=== PATIENT | female | born 1950 | race Caucasian/White ===

== ENCOUNTER 2017-10-21 07:34 | Outpatient (CLI) | payer OTHER ==
[~2017-10-21 07:34] MED LIST: ALENDRONATE SOD35 MG PO; ALTOPREV20 MG PO; CLONAZEPAM2 MG PO; NABUMETONE500 MG PO; PERCOCET 5-3251 EACH PO; VITAMIN D400 UNI2 PO
== END 2017-10-21 07:38 | disposition home or self-care (01) ==
LOC: SONOGRAMA 07:34
DX: M25.511 Pain in right shoulder (principal)

== ENCOUNTER 2021-08-23 08:00 | Inpatient (IN) | payer OTHER ==
[~2021-08-23] VITALS: Ht 152.4 cm; Wt 86.2 kg
[2021-08-23] MEDS ORDERED: HYDRODIURIL12.5 MG PO (11:42)
[2021-08-23] MEDS ORDERED: CALCIUM500 M2 PO (11:42)
[2021-08-23] MEDS ORDERED: ADULT LOW DOSE81 M1 PO (11:42)
[2021-08-23] MEDS ORDERED: VASOTEC5 MG PO (11:43)
[2021-08-29] MEDS ORDERED: DUI500 PO (15:23)
[2021-08-29] MEDS ORDERED: ELIQUIS2.5 MG PO (15:23)
[2021-08-29] MEDS ORDERED: PERCOCET 5-3251 EACH PO (15:23)
== END 2021-08-29 17:38 | disposition home or self-care (01) | DRG 470 ==
LOC: O/R 08-27 05:55 → SURG 08-27 05:55 → SURH 08-27 08:00 → SURG 08-27 14:59
PROVIDERS: ADMIT Orthopaedic Surgery; ATTEND Orthopaedic Surgery
PROC: 0SRC0J9 Replacement of Right Knee Joint with Synthetic Substitute, Cemented, Open Approach (ICD-10-PCS; principal; 2021-08-27 13:45)
DX: M17.11 Unilateral primary osteoarthritis, right knee (principal); D62 Acute posthemorrhagic anemia; E66.9 Obesity, unspecified; M22.11 Recurrent subluxation of patella, right knee; I10 Essential (primary) hypertension; Z20.822 Contact with and (suspected) exposure to COVID-19

== ENCOUNTER 2023-10-20 08:30 | Inpatient (IN) | payer OTHER ==
[~2023-10-20] VITALS: Ht 149.9 cm; Wt 73.5 kg
[~2023-10-20 08:30] MED LIST changes: +ADULT LOW DOSE81 M1 PO; +CALCIUM500 M2 PO; +DUI500 PO; +ELIQUIS2.5 MG PO; +HYDRODIURIL12.5 MG PO; +VASOTEC5 MG PO
[2023-10-20 10:25] LABS: URINE APPEARANCE Clear; URINE BILIRRUBIN Negative (NEGATIVE); URINE BLOOD Negative; URINE COLOR Yellow; URINE GLUCOSE Negative (NEGATIVE); URINE LEUKOCYTE Trace; URINE NITRATE Negative; URINE PROTEIN Negative (NEGATIVE); URINE UROBILINOGEN 0.2 E.U./dl
[2023-10-20 10:27] LABS: URINE BACTERIA 80.6 uL (0.0-1933); URINE EPITHELIAL CELLS 8.6 uL (0.0-38.8); URINE WBC 13.1 uL (0.0-23.2)
[2023-10-20 10:30] LABS: URINE RBC 1.8 uL (0.0-20.8)
[2023-10-20 10:34] LABS: HEMATOCRIT 41.3 % (36.0-45.00); HEMOGLOBIN 13.9 g/dL (12.0-15.00); MEAN CORPUSCULAR HEMOGLOBIN 29.1 pg (27.00-32.0); MEAN CORPUSCULAR HGB CONC 33.8 g/dl (32.0-36.0); PLATELET COUNT 244 K/uL (150-450); RED CELL DISTRIBUTION WIDTH 14.6 % (11.5-14.5)
[2023-10-20 11:04] LABS: ALBUMIN 3.6 gm/dL (3.4-5.0); BILIRUBIN TOTAL 0.94 mg/dL (0.3-1.2); CALCIUM 9.4 mg/dL (8.5-10.1); CREATININE SERUM 0.51 mg/dL (0.55-1.02); GFR 118.87; GLOBULINA 3.6 G/DL (2.4-3.5); POTASSIUM 3.96 mEq/L (3.5-5.1); TOTAL PROTEIN 7.2 gm/dL (6.4-8.2)
[2023-10-20 11:12] LABS: INR 1.01; PARTIAL THROMBOPLASTIN TIME 31.3 SECONDS (22.0-34.0); PROTHROMBIN TIME 10.6 SECONDS (9.0-11.5)
[2023-10-27] MEDS ORDERED: KETOROLAC TROMETHAMINE 60 MG VIAL IM ONE ×2 (09:09→10:15)
[2023-10-27] MEDS ORDERED: CEFAZOLIN SODIUM 1,000 MG VIAL ONE ×2 (09:09→15:56)
[2023-10-27] MEDS ORDERED: TRANEXAMIC ACID 100MG/1ML (1000MG) AMPUL IV ONE ×3 (09:10→10:15)
[2023-10-27] MEDS ORDERED: BUPIVACAINE HCL 30 ML VIAL IJ ONE (10:15)
[2023-10-27] MEDS ORDERED: LIDOCAINE HCL/EPINEPHRINE 10MG/ML 1% 50ML IJ ONE (10:15)
[2023-10-27] MEDS ORDERED: CEFAZOLIN SODIUM 1,000 MG VIAL IV ONE (10:15)
[2023-10-27] MEDS ORDERED: MORPHINE SULFATE 4 MG/ML VIAL IV ONE (10:15)
[2023-10-27] MEDS ORDERED: MORPHINE SULFATE 4 MG/ML CARTRIDGE IV PRN (10:45)
[2023-10-27] MEDS ORDERED: ONDANSETRON HCL 2 MG/ML VIAL IV PRN (10:45)
[2023-10-27] MEDS ORDERED: OxyCODONE HCL 5 MG TABLET (ROXICODONE) PO PRN (10:45)
[2023-10-27] MEDS ORDERED: SODIUM CHLORIDE 0.45 % 1,000 ML IV SCH (10:45)
[2023-10-27] MEDS ORDERED: ACETAMINOPHEN 500 MG GEL..CAP PO SCH (12:00)
[2023-10-27] MEDS ORDERED: ONDANSETRON HCL 2 MG/ML VIAL ONE (12:53)
[2023-10-27] MEDS ORDERED: GABAPENTIN 300 MG CAPSULE PO ONE (15:58)
[2023-10-27] MEDS ORDERED: ENALAPRILAT DIHYDRATE 1.25 MG/ML VIAL IV PRN (16:15)
[2023-10-27] MEDS ORDERED: GABAPENTIN 300 MG CAPSULE PO SCH (17:00)
[2023-10-27] MEDS ORDERED: CEFAZOLIN SODIUM 1,000 MG VIAL IV SCH (17:00)
[2023-10-28 05:20] LABS: HEMATOCRIT 36.4 % (36.0-45.00); HEMOGLOBIN 12.1 g/dL (12.0-15.00); MEAN CELL VOLUME 86.1 fL (80.00-100.00); MEAN CORPUSCULAR HEMOGLOBIN 28.6 pg (27.00-32.0); MEAN CORPUSCULAR HGB CONC 33.2 g/dl (32.0-36.0); PLATELET COUNT 185 K/uL (150-450); RED BLOOD COUNT 4.23 M/uL (4.00-6.00); RED CELL DISTRIBUTION WIDTH 14.2 % (11.5-14.5)
[2023-10-28] MEDS ORDERED: ELIQUIS2.5 MG PO (08:15)
[2023-10-28] MEDS ORDERED: PERCOCET 5-3251 EACH PO (08:15)
[2023-10-28] MEDS ORDERED: DUI500 PO (08:15)
[2023-10-28] MEDS ORDERED: HYDROCHLOROTHIAZIDE 12.5 MG CAPSULE PO SCH (09:00)
[2023-10-28] MEDS ORDERED: APIXABAN 2.5 MG TABLET PO SCH (09:00)
[2023-10-28] MEDS ORDERED: SENNOSIDES 1 TAB TABLET PO SCH (09:00)
[2023-10-28] MEDS ORDERED: ENALAPRIL MALEATE 20 MG TABLET PO SCH (09:00)
[2023-10-28] MEDS ORDERED: SOD FERRIC GLUC COMPLX/SUCROSE 62.5 MG/5 ML AMPUL IV SCH (15:08)
[2023-10-28] MEDS ORDERED: Cyanocobalamin/Mecobalamin 1 TAB.SL SL SCH (15:09)
[2023-10-28] MEDS ORDERED: VITAMIN B COMPLEX 1 EACH PO SCH (17:00)
[2023-10-29 05:27] LABS: HEMATOCRIT 34.8 % (36.0-45.00); HEMOGLOBIN 11.7 g/dL (12.0-15.00); MEAN CELL VOLUME 85.7 fL (80.00-100.00); MEAN CORPUSCULAR HEMOGLOBIN 28.8 pg (27.00-32.0); MEAN CORPUSCULAR HGB CONC 33.6 g/dl (32.0-36.0); PLATELET COUNT 189 K/uL (150-450); RED BLOOD COUNT 4.06 M/uL (4.00-6.00)
[2023-10-29] MEDS ORDERED: IRON FUM,PS/FOLIC ACID/VITC/B3 1 CAP CAPSULE PO SCH (09:00)
== END 2023-10-29 14:43 | DRG 470 ==
LOC: SURG 10-27 06:00 → O/R 10-27 06:00 → SURH 10-27 08:30 → SURG 10-27 11:13
PROVIDERS: ADMIT Orthopaedic Surgery; ATTEND Orthopaedic Surgery
PROC: 0SRD0J9 Replacement of Left Knee Joint with Synthetic Substitute, Cemented, Open Approach (ICD-10-PCS; principal; 2023-10-27 09:30)
DX: M17.12 Unilateral primary osteoarthritis, left knee (principal); D62 Acute posthemorrhagic anemia; M81.0 Age-related osteoporosis without current pathological fracture; I10 Essential (primary) hypertension